=== PATIENT | male | born 1965 | race African-American/Black ===

== ENCOUNTER 2025-03-19 14:17 | Inpatient (IN) | payer OTHER ==
[2025-03-19 16:20] LABS: ALT (SGPT) 22 U/L (Less than 45); AST (SGOT) 23 U/L (11-34); Albumin 3.6 g/dL (3.1-4.5); Alkaline Phosphatase 95 U/L (40-110); Anion Gap 14 mmol/L (10-20); BUN (Urea Nitrogen) 9 mg/dL (8.4-25.7); Bilirubin, Total 1.0 mg/dL (0.3-1.2); Calc. Creatinine Clearance 0 mL/min (70-130); Calcium 8.9 mg/dL (7.8-10.44); Carbon Dioxide 26 mmol/L (22-29); Chloride 103 mmol/L (98-107); Globulin 3.9 g/dL (2.4-3.5); Glucose 114 mg/dL (70-105); Potassium 3.9 mmol/L (3.5-5.1); Sodium 139 mmol/L (136-145)
[2025-03-19 16:24] LABS: #Basophils 0.07 10x3/uL (0.0-0.2); #Eosinophils 0.10 10x3/uL (0.0-0.7); #Monocytes 1.72 10x3/uL (0.11-0.59); #Neutrophils 13.21 10x3/uL (1.40-6.50); %Basophils 0.3 % (0.0-1.0); %Eosinophils 0.5 % (0.0-10.0); %Lymphocytes 23.9 % (21.0-51.0); %Monocytes 8.4 % (0.0-10.0); %Neutrophils 64.5 % (42.0-75.0); Hematocrit 39.3 % (42.0-52.0); Hemoglobin 13.6 g/dL (14.0-18.0); Mean Corpuscular Hemoglobin 29.6 pg (27.0-31.0); Mean Corpuscular Volume 85.4 fL (78.0-98.0); Platelet Count 321 10x3/uL (130-400); Red Blood Cell (RBC) Count 4.60 mill/uL (4.70-6.10); White Blood Cell (WBC) Count 20.49 10x3/uL (4.8-10.8)
[2025-03-19] MEDS ORDERED: Cefepime 2 GM VIAL ONE (17:27)
[2025-03-19] MEDS ORDERED: Vancomycin 1 GM/200 ML (FROZEN) BAG ONE (19:03)
[2025-03-19] MEDS ORDERED: Guaifenesin DM 100-10/5 ML UDCUP PO PRN (19:14)
[2025-03-19] MEDS ORDERED: Calcium Carbonate 500 MG ChewTAB PO PRN (19:14)
[2025-03-19] MEDS ORDERED: Ondansetron PF 4 MG/2 ML Vial IVP PRN (19:14)
[2025-03-19 20:10] VITALS: BMI 34.7
[2025-03-19] MEDS ORDERED: Pharmacy to Dose: VANCOMYCIN IVPB PRN (20:32)
[2025-03-19] MEDS ORDERED: Vancomycin 1 GM in Premix 1 BAG IVPB SCH (21:00)
[2025-03-19] MEDS: VANCOMYCIN 1.75 GM/350 ML Premix BAG IVPB SCH (21:41)
[2025-03-20] MEDS: Acetaminophen 325 MG TAB PO PRN (00:41)
[2025-03-20 06:22] LABS: Anion Gap 15 mmol/L (10-20); BUN (Urea Nitrogen) 9 mg/dL (8.4-25.7); Calc. Creatinine Clearance 135 mL/min (70-130); Calcium 9.1 mg/dL (7.8-10.44); Carbon Dioxide 23 mmol/L (22-29); Chloride 106 mmol/L (98-107); Glucose 132 mg/dL (70-105); Potassium 4.0 mmol/L (3.5-5.1); Sodium 140 mmol/L (136-145)
[2025-03-20 06:24] LABS: Vancomycin, Random 13.8 ug/mL (See Comment)
[2025-03-20 06:29] LABS: #Basophils 0.05 10x3/uL (0.0-0.2); #Eosinophils 0.11 10x3/uL (0.0-0.7); #Monocytes 1.29 10x3/uL (0.11-0.59); #Neutrophils 9.76 10x3/uL (1.40-6.50); %Basophils 0.3 % (0.0-1.0); %Eosinophils 0.7 % (0.0-10.0); %Lymphocytes 26.3 % (21.0-51.0); %Monocytes 8.2 % (0.0-10.0); %Neutrophils 62.2 % (42.0-75.0); Hematocrit 34.3 % (42.0-52.0); Hemoglobin 11.7 g/dL (14.0-18.0); Mean Corpuscular Hemoglobin 30.2 pg (27.0-31.0); Mean Corpuscular Volume 88.4 fL (78.0-98.0); Platelet Count 349 10x3/uL (130-400); Red Blood Cell (RBC) Count 3.88 mill/uL (4.70-6.10); White Blood Cell (WBC) Count 15.69 10x3/uL (4.8-10.8)
[2025-03-20] MEDS: metFORMIN 500 MG TAB PO SCH (09:01)
[2025-03-20] MEDS: FLU (Fluarix Triv) 25-26 (6MOS UP)/PF 45 MCG/0.5 ML Syringe IM ONE (09:01)
[2025-03-20] MEDS: Vancomycin 1.25 GM / NS 250 ML VIAL-2-BAG IVPB SCH (09:01)
[2025-03-20] MEDS: Enoxaparin 40 MG (0.4 mL) SYRINGE SC SCH (09:01)
[2025-03-20] MEDS: Linezolid 600 MG TAB PO SCH (20:45)
[2025-03-20] MEDS: cefTRIAXone\\ROCEPHIN 2 GM in Sodium Chloride 0.9% 100 ML IVPB SCH (20:45)
[2025-03-20] MEDS ORDERED: Vancomycin 1.5 GM / NS 500 ML VIAL-2-BAG IVPB SCH (21:00)
[2025-03-21 05:34] LABS: #Basophils 0.06 10x3/uL (0.0-0.2); #Eosinophils 0.14 10x3/uL (0.0-0.7); #Monocytes 1.15 10x3/uL (0.11-0.59); #Neutrophils 8.43 10x3/uL (1.40-6.50); %Basophils 0.4 % (0.0-1.0); %Eosinophils 1.0 % (0.0-10.0); %Lymphocytes 31.9 % (21.0-51.0); %Monocytes 7.8 % (0.0-10.0); %Neutrophils 57.5 % (42.0-75.0); Hematocrit 35.5 % (42.0-52.0); Hemoglobin 11.7 g/dL (14.0-18.0); Mean Corpuscular Hemoglobin 29.0 pg (27.0-31.0); Mean Corpuscular Volume 88.1 fL (78.0-98.0); Platelet Count 426 10x3/uL (130-400); Red Blood Cell (RBC) Count 4.03 mill/uL (4.70-6.10); White Blood Cell (WBC) Count 14.67 10x3/uL (4.8-10.8)
[2025-03-21 05:45] LABS: Anion Gap 12 mmol/L (10-20); BUN (Urea Nitrogen) 9 mg/dL (8.4-25.7); Calc. Creatinine Clearance 136 mL/min (70-130); Calcium 9.4 mg/dL (7.8-10.44); Carbon Dioxide 25 mmol/L (22-29); Chloride 105 mmol/L (98-107); Glucose 120 mg/dL (70-105); Potassium 4.2 mmol/L (3.5-5.1); Sodium 138 mmol/L (136-145)
[2025-03-21 06:07] LABS: CRP, High Sensitivity at Bryan 17.84 mg/dL (< or = 0.5)
[2025-03-21] MEDS: HYDROcodone/Acetaminophen 5/325 mg Tablet PO PRN (08:07)
[2025-03-22 04:48] LABS: #Basophils 0.07 10x3/uL (0.0-0.2); #Eosinophils 0.19 10x3/uL (0.0-0.7); #Monocytes 0.99 10x3/uL (0.11-0.59); #Neutrophils 7.77 10x3/uL (1.40-6.50); %Basophils 0.5 % (0.0-1.0); %Eosinophils 1.4 % (0.0-10.0); %Lymphocytes 32.6 % (21.0-51.0); %Monocytes 7.2 % (0.0-10.0); %Neutrophils 56.9 % (42.0-75.0); Hematocrit 36.2 % (42.0-52.0); Hemoglobin 12.2 g/dL (14.0-18.0); Mean Corpuscular Hemoglobin 29.6 pg (27.0-31.0); Mean Corpuscular Volume 87.9 fL (78.0-98.0); Platelet Count 460 10x3/uL (130-400); Red Blood Cell (RBC) Count 4.12 mill/uL (4.70-6.10); White Blood Cell (WBC) Count 13.67 10x3/uL (4.8-10.8)
[2025-03-22 05:06] LABS: Anion Gap 14 mmol/L (10-20); BUN (Urea Nitrogen) 9 mg/dL (8.4-25.7); Calc. Creatinine Clearance 132 mL/min (70-130); Calcium 9.4 mg/dL (7.8-10.44); Carbon Dioxide 25 mmol/L (22-29); Chloride 102 mmol/L (98-107); Glucose 111 mg/dL (70-105); Potassium 4.3 mmol/L (3.5-5.1); Sodium 137 mmol/L (136-145)
[2025-03-23 05:49] LABS: #Basophils 0.07 10x3/uL (0.0-0.2); #Eosinophils 0.20 10x3/uL (0.0-0.7); #Monocytes 0.99 10x3/uL (0.11-0.59); #Neutrophils 8.09 10x3/uL (1.40-6.50); %Basophils 0.5 % (0.0-1.0); %Eosinophils 1.4 % (0.0-10.0); %Lymphocytes 32.9 % (21.0-51.0); %Monocytes 7.0 % (0.0-10.0); %Neutrophils 56.9 % (42.0-75.0); Hematocrit 36.5 % (42.0-52.0); Hemoglobin 12.3 g/dL (14.0-18.0); Mean Corpuscular Hemoglobin 29.4 pg (27.0-31.0); Mean Corpuscular Volume 87.3 fL (78.0-98.0); Platelet Count 500 10x3/uL (130-400); Red Blood Cell (RBC) Count 4.18 mill/uL (4.70-6.10); White Blood Cell (WBC) Count 14.22 10x3/uL (4.8-10.8)
[2025-03-23 08:22] VITALS: BP 161/80; TEMP 98.4
[2025-03-23] MEDS: Gabapentin 300 MG CAP PO SCH (10:26)
== END 2025-03-23 16:33 | DRG 872 ==
LOC: EEVIPCON 14:17 → ERS 14:17 → T4-B 17:54
PROVIDERS: ADMIT Internal Medicine; ATTEND Family Medicine
DX: A41.9 Sepsis, unspecified organism (principal); L03.115 Cellulitis of right lower limb; I10 Essential (primary) hypertension; E78.5 Hyperlipidemia, unspecified; E11.9 Type 2 diabetes mellitus without complications
CPT/HCPCS: 36415; 80048; 80053; 80202; 83605; 85025; 86141; 87040; 87081; 96365; 96367; J0692; J0696; J1650; J3373; J3375; J7050